=== PATIENT | female | born 1980 | race Two or more races ===

== ENCOUNTER 2018-11-11 14:30 | Inpatient (IN) | payer OTHER ==
[~2018-11-11] VITALS: Ht 149.9 cm; Wt 64.9 kg
[2018-12-01] MEDS ORDERED: ZANTAC150 M3 PO (08:02)
[2018-12-01] MEDS ORDERED: OBSTETRIX DHA1 EACH PO (08:02)
== END 2018-12-03 14:43 | DRG 807 ==
LOC: LDR 12-01 07:19 → OB/GYN 12-01 07:19
PROVIDERS: ADMIT Obstetrics & Gynecology
PROC: 10E0XZZ Delivery of Products of Conception, External Approach (ICD-10-PCS; principal; 2018-12-01)
PROC: 0KQM0ZZ Repair Perineum Muscle, Open Approach (ICD-10-PCS; 2018-12-01)
PROC: 4A1HXCZ Monitoring of Products of Conception, Cardiac Rate, External Approach (ICD-10-PCS; 2018-12-01)
DX: O70.1 Second degree perineal laceration during delivery (principal); Z37.0 Single live birth; Z3A.39 39 weeks gestation of pregnancy; Z22.330 Carrier of Group B streptococcus